=== PATIENT | female | born 1970 | race Caucasian/White ===

== ENCOUNTER 2019-12-07 14:57 | Outpatient (CLI) | payer OTHER, SELFPAY ==
--- NOTE | ~2019-12-07 | MM_ITS ---
EXAMINATION: MM screening [facility] HISTORY: Screening mammogram TECHNIQUE: Craniocaudal and mediolateral oblique 3-D tomosynthesis images were obtained and synthetic 2-D images were generated. CAD analysis was submitted and interpreted. COMPARISON: 12/04/2018 diagnostic left digital mammogram 11/15/2018, 10/30/2017, 10/26/2016 bilateral digital screening mammogram examinations BREAST PARENCHYMAL COMPOSITION: There are scattered areas of fibroglandular density. FINDINGS: Scattered bilateral occasional benign calcifications. There is no evidence of suspicious ma ss, calcification, or architectural distortion to suggest malignancy in either breast. There has been no suspicious interval change. IMPRESSION: 1. No mammographic evidence of malignancy. 2. Recommend routine screening mammography in one year. BI-RADS Category 2: Benign finding(s). Reviewed, dictated and finalized at location A. BITS CURATOR
== END 2019-12-07 14:58 | disposition home or self-care (01) ==
LOC: ANHIMG 15:02
PROVIDERS: PCP Physician Assistant; Visit Provider Obstetrics & Gynecology
DX: Z12.31 Encounter for screening mammogram for malignant neoplasm of breast (principal)
CPT/HCPCS: 77063; 77067

== ENCOUNTER 2020-12-13 13:43 | Outpatient (CLI) | payer OTHER, SELFPAY ==
--- NOTE | ~2020-12-13 | MM_ITS ---
EXAMINATION: MM screening [facility] [place] HISTORY: Screening TECHNIQUE: Craniocaudal and mediolateral oblique 3-D tomosynthesis images were obtained and synthetic 2-D images were generated. CAD analysis was submitted and interpreted. COMPARISON: Comparison to multiple prior studies sequentially, with oldest reviewed study dated 09/28. BREAST PARENCHYMAL COMPOSITION: Breast composed of scattered areas of fibroglandular density. FINDINGS: The right breast is stable without evidence for malignancy. There is a cluster of indetermi kenroy calcifications in the upper outer quadrant of the left breast which may be slightly increased in number compared with prior study. IMPRESSION: 1. Developing cluster of indeterminate calcifications upper outer quadrant, middle third. 2. Magnification views are recommended. BI-RADS Category 0: Incomplete: Needs additional imaging evaluation. Reviewed, dictated and finalized at location A. OPERATIONS SUPERVISOR IMPRESSION: 1. Developing cluster of indeterminate calcifications upper outer quadrant, mid dle third. 2. Magnification views are recommended. BI-RADS Category 0: Incomplete: Needs additional imaging evaluation.
== END 2020-12-13 13:44 | disposition home or self-care (01) ==
LOC: ANHIMG 13:45
PROVIDERS: PCP Physician Assistant; Visit Provider Obstetrics & Gynecology
DX: Z12.31 Encounter for screening mammogram for malignant neoplasm of breast (principal); R92.8 Other abnormal and inconclusive findings on diagnostic imaging of breast
CPT/HCPCS: 77063; 77067

== ENCOUNTER 2020-12-15 11:25 | Outpatient (CLI) | payer OTHER, SELFPAY ==
--- NOTE | ~2020-12-15 | MMUS_ITS ---
EXAMINATION: MM diagnostic mammo unilat LT, US breast LT limited HISTORY: Follow-up left breast asymmetries/calcifications TECHNIQUE: Additional 3-D tomosynthesis images of the left breast were performed and synthetic 2-D im ages were generated. CAD analysis was submitted and interpreted. High resolution Limited left breast ultrasound was performed. COMPARISON: Comparison to multiple prior studies sequentially, with oldest reviewed study dated 09/29. BREAST PARENCHYMAL COMPOSITION: Breast composed of scattered areas of fibroglandular density. FINDINGS: MAMMOGRAPHIC FINDINGS: There are benign-appearing calcifications in the upper outer quadrant of the left breast, a few of wh ich layer on the medial lateral view, suggesting benign milk of calcium. ULTRASOUND: Limited left breast ultrasound: At 3:00, 3 cm from the nipple, there is a small hypoechoic mass measu ring 3 mm with focus of increased echogenicity internally which may represent milk of calcium or roma gn intramammary lymph node. No other masses are identified. IMPRESSION: 1. Probable benign findings of the left breast. 2. Recommend 6 month follow-up diagnostic left mammogram and ultrasound. BI-RADS category 3, probably benign findings. Reviewed, dictated and finalized at location A. ENTER [employer]LE [employer]LLY IMPRESSION: 1. Probable benign findings of the left breast. 2. Recommend 6 month follow-up diagnostic left mammogram and ultrasound. BI-RADS category 3, probably benign findings.
== END 2020-12-15 11:26 | disposition home or self-care (01) ==
PROVIDERS: PCP Physician Assistant; Visit Provider Obstetrics & Gynecology
DX: R92.8 Other abnormal and inconclusive findings on diagnostic imaging of breast (principal)
CPT/HCPCS: 76642; 77065

== ENCOUNTER 2021-06-15 13:53 | Outpatient (CLI) | payer OTHER, SELFPAY ==
--- NOTE | ~2021-06-15 | MMUS_ITS ---
EXAMINATION: MM diagnostic [facility] LT w [place], US breast LT limited HISTORY: Six-month follow-up for probably benign left breast mass TECHNIQUE: Craniocaudal, mediolateral, and mediolateral oblique 3-D tomosynthesis images of the left breast were performed and synthetic 2-D images were generated. CAD analysis was submitted and interpr eted. High resolution limited left breast ultrasound was performed. COMPARISON: 12/15/2020, 12/13/2020, 12/07/2019, 12/04/2018 BREAST PARENCHYMAL COMPOSITION: There are scattered areas of fibroglandular density. FINDINGS: MAMMOGRAPHIC FINDINGS: There is no evidence of suspicious mass, calcification, or architectural distortion left malignancy. There has been no suspicious interval change. Stable benign calcifications are present in the upper o uter quadrant of the breast. ULTRASOUND: No persistent discrete mass is identified at the 3:00 location 3 cm from the nipple. IMPRESSION: 1. No mammographic or sonographic evidence of malignancy. 2. Recommend routine screening mammography. BI-RADS Category 2: Benign finding(s). Reviewed, dictated and finalized at location A. IMPRESSION: 1. No mammographic or sonographic evidence of malignancy. 2. Recommend routine screening mammography. BI-RADS Category 2: Benign finding(s).
== END 2021-06-15 13:54 | disposition home or self-care (01) ==
LOC: ANHIMG 13:54
PROVIDERS: PCP Physician Assistant; Visit Provider Obstetrics & Gynecology
DX: R91.8 Other nonspecific abnormal finding of lung field (principal)
CPT/HCPCS: 76642; 77061; 77065; G0279

== ENCOUNTER 2022-01-09 09:32 | Outpatient (CLI) | payer OTHER, SELFPAY ==
--- NOTE | ~2022-01-09 | MM_ITS ---
EXAMINATION: MM screening [facility] BI w [place] HISTORY: Screening mammogram TECHNIQUE: Craniocaudal and mediolateral oblique 3-D tomosynthesis images were obtained and synthetic 2-D images were generated. CAD analysis was submitted and interpreted. COMPARISON: 06/15/2021, 12/15/2020, 12/13/2020, 12/07/2019 BREAST PARENCHYMAL COMPOSITION: There are scattered areas of fibroglandular density. FINDINGS: There is no evidence of suspicious mass, calcification, or architectural distortion to sugg est malignancy in either breast. There has been no suspicious interval change. IMPRESSION: 1. No mammographic evidence of malignancy. 2. Recommend routine screening mammography in one year. BI-RADS Category 1: Negative Reviewed, dictated and finalized at location A.
== END 2022-01-09 09:33 | disposition home or self-care (01) ==
LOC: ANHIMG 09:33
PROVIDERS: PCP Physician Assistant; Visit Provider Obstetrics & Gynecology
DX: Z12.31 Encounter for screening mammogram for malignant neoplasm of breast (principal)
CPT/HCPCS: 77063; 77067

== ENCOUNTER 2023-01-18 15:01 | Outpatient (CLI) | payer OTHER, SELFPAY ==
--- NOTE | ~2023-01-18 | MM_ITS ---
EXAMINATION: MM screening [facility] [place] HISTORY: Screening TECHNIQUE: Craniocaudal and mediolateral oblique 3-D tomosynthesis images were obtained and synthetic 2-D images were generated. CAD analysis was submitted and interpreted. COMPARISON: Comparison to multiple prior studies sequentially, with oldest reviewed study dated 12/07. BREAST PARENCHYMAL COMPOSITION: There are scattered areas of fibroglandular density. FINDINGS: There is no evidence of suspicious mass, calcification, or architectural distortion to sugg est malignancy in either breast. There has been no suspicious interval change. IMPRESSION: 1. No mammographic evidence of malignancy. 2. Recommend routine screening mammography in one year. BI-RADS Category 1: Negative Reviewed, dictated and finalized at location A.
== END 2023-01-18 15:02 | disposition home or self-care (01) ==
PROVIDERS: PCP Physician Assistant; Visit Provider Obstetrics & Gynecology
DX: Z12.31 Encounter for screening mammogram for malignant neoplasm of breast (principal)
CPT/HCPCS: 77063; 77067

== ENCOUNTER 2024-01-24 08:25 | Outpatient (CLI) | payer OTHER, SELFPAY ==
--- NOTE | ~2024-01-24 | MM_ITS ---
EXAMINATION: MM screening [facility] [place] HISTORY: Screening mammogram TECHNIQUE: Craniocaudal and mediolateral oblique 3-D tomosynthesis images were obtained and synthetic 2-D images were generated. CAD analysis was submitted and interpreted. COMPARISON: 01/14/2023, 01/09/2022 bilateral screening mammogram examinations BREAST PARENCHYMAL COMPOSITION: There are scattered areas of fibroglandular density. FINDINGS: There is no evidence of suspicious mass, calcification, or architectural distortion to sugg est malignancy in either breast. There has been no suspicious interval change. IMPRESSION: 1. No mammographic evidence of malignancy. 2. Recommend routine screening mammography in one year. BI-RADS Category 1: Negative Reviewed, dictated and finalized at location A.
== END 2024-01-24 08:26 | disposition home or self-care (01) ==
LOC: ANHIMG 08:29
PROVIDERS: PCP Physician Assistant; Visit Provider Obstetrics & Gynecology
DX: Z12.31 Encounter for screening mammogram for malignant neoplasm of breast (principal)
CPT/HCPCS: 77063; 77067

== ENCOUNTER 2025-01-25 08:30 | Outpatient (CLI) | payer OTHER, SELFPAY ==
--- NOTE | ~2025-01-25 | MM_ITS ---
EXAMINATION: MM screening ambrocio BI w [place] HISTORY: Screening TECHNIQUE: Craniocaudal and mediolateral oblique 3-D tomosynthesis images were obtained and synthetic 2-D images were generated. CAD analysis was submitted and interpreted. COMPARISON: Comparison to multiple prior studies sequentially, with oldest reviewed study dated 12/13. BREAST PARENCHYMAL COMPOSITION: Not dense: There are scattered areas of fibroglandular density. FINDINGS: There is no evidence of suspicious mass, calcification, or architectural distortion to sugg est malignancy in either breast. There has been no suspicious interval change. IMPRESSION: 1. No mammographic evidence of malignancy. 2. Recommend routine screening mammography in one year. BI-RADS Category 1: Negative Reviewed, dictated and finalized at location A.
--- OUTSIDE RECORDS SUMMARY | 2025-01-25 08:53 | XMS_ITS | Encounter Summary ---
Author Organization [facility] Healthcare Address [address] [place] [address] Care Team Providers Care Shoe Sprayer Name Role Phone Yohana Hurtado Primary Care Provider [phone]- [phone] Encounter Details Date Type Department Care Team (Late st Contact Info) Description 01/24/2024 Orders Only [facility] Health Information Management [address] [place] [id number] Carlos Arrieta MD [facility] [address] [address] Social History Tobacco Use Types Packs/Day Years Used Date Smoking Tobacco: Never Smokeless Tobacco: Never Alcohol Use Standard Drinks/Week Comments Yes 0 (1 standard drink = 0.6 oz pur e alcohol) social AUDIT-C Answer Date Recorded Q1: How often do you have a drink containing alc ohol? Monthly or less 11/25/2023 Q2: How many drinks containi ng alcohol do you have on a typical day when you are drinking? 1 or 2 11/25/2023 Q3: How often do you have si x or more drinks on one occasion? 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 Gender Identity Female 01/24/2021 12:58 PM CDT Sexual Orientation Straight 01/24/2021 12 :58 PM CDT Occupation Industry Job Start Date Job End Date Teacher Not on file Not on file Not on file documented as of this encounter Plan of Treatment Not on file documented as of this encounter Procedures Procedure Name Priority Date/Time Associated Diagnosis Comments SCAN - RADIOLOGY/IMAGING 01/24/2024 documented in this encounter Results * SCAN - RADIOLOGY/IMAGING (01/24/2024) Anatomical Region Laterality Modality Other Carlos Arrieta MD Final R esult documented in this encounter Visit Diagnoses Not on filedocumented in this encounter Care Teams Shoe Sprayer Relationship Specialty Start Date End Date Yohana Hurtado PA [address] [place] [address] PCP - General Internal Medicine 08/10/19 documented as of this encounter
--- OUTSIDE RECORDS SUMMARY | 2025-01-25 08:53 | XMS_ITS | Referral Summary ---
Author Organization [address] [address] Care Team Providers Care Manager Reporting Name Role Phone Yohana Hurtado Primary Care Provider [phone] Encounters Date Type Department Care Team Description 12/25/2024 Results Follow-Up [address] [address] Yohana Hurtado PA Acquired hypothyroidism (Primary Dx) 12/01/2024 2:45 PM RESOLUTION MANAGER Clinical Support [address] [address] Dysuria (Primary Dx) 11/30/2024 3:30 PM RESOLUTION MANAGER Office Visit [address] [address] Yohana Hurtado PA Annual physical exam (Primary Dx); Lumbar back pain; Acquired hypothyroidism; Mixed hyperlipidemia; Diabetes mellitus screening; Fatigue, unspecified type; BMI 36.0-36.9,adult; Morbid obesity (HCC); Low vitamin D level; Essential hypertension; Ingrown toenail; Situational stress from Last 3 Months Allergies Active Allergy Reactions Criticality Noted Date Comments Codeine Vomiting Low Medications multivit-min/iron/ folic acid/K (ADULTS MULTIVITAMIN ORAL) Rx: Multivitamin Adult - Tablet Active ascorbic acid (VITAMIN C) 1,000 mg tablet 1 tablet (1,000 mg total) Active vitamin E 400 unit capsule 1 capsule (400 Units total) daily Active CALCIUM-MAGNESIUM- ZINC ORAL Take by mouth Active cholecalciferol (VITAMIN D-3) 5,000 unit tablet Take 1 tablet (5,000 Units total) by mouth daily Active mupirocin (BACTROBAN) 2 % ointment Apply to each nostril 2 (two) times a day 22 g 04/17/20 24 Active Additional Information Patient not taking.Reported on 05/06/2024 meloxicam (MOBIC) 7.5 mg tablet TAKE 1 TABLET DAILY 90 tablet 3 06/11/20 24 Active benzonatate (TESSALON) 200 mg capsuleIndications :Acute cough Take 1 capsule (200 mg total) by mouth 3 (three) times a day as needed for cough keep tessalon out of reach of children, especially children under the age of 10, due to possible serious risk such as if ingested by children under the age of 10. 30 capsule 07/06/20 24 Active Additional Information Patient not taking.Reported on 11/30/2024 albuterol HFA (PROVENTIL HFA,VENTOLIN HFA,PROAIR HFA) 90 mcg/actuation inhalerIndications :History of wheezing Inhale 2 puffs every 6 (six) hours as needed for wheezing 1 each 07/06/20 24 025 Active lisinopriL (PRINIVIL,ZESTRIL) 10 mg tabletIndications: Essential hypertension TAKE 1 TABLET DAILY 100 tablet 11/25/19 25 Active escitalopram (LEXAPRO) 10 mg tablet Take 1 tablet (10 mg total) by mouth daily 90 tablet 1 11/30/19 25 Active levothyroxine (SYNTHROID) 150 mcg tabletIndications: Acquired hypothyroidism Take 1 tablet (150 mcg total) by mouth manager sap before breakfast 30 tablet 12/25/19 25 Active Active Problems Problem Noted Date Diagnosed Date Lumbar back pain 12/12/2024 Assessment & Plan (12/12/2024 11:49 PM RESOLUTION MANAGER): Back pain has been persistent. Will provide physical therapy order. Continue anti-inflammatories as needed. If symptoms worsen or do not resolve or she would notice loss of control of her bowels or bladder she is to follow up immediately Ingrown toenail 12/12/2024 Assessment & Plan (12/12/2024 11:47 PM RESOLUTION MANAGER): This is a significant, separately identifiable problem that was evaluated and managed on the same day as the wellness exam Toenail of the great toe is cut to the point where the middle aspect is a little red puffy and tender. Will start Keflex t.i.d. times 10 days. Reviewed proper cutting of the nails. Situational stress 12/12/2024 Assessment & Plan (12/12/2024 11:50 PM RESOLUTION MANAGER): This is a significant, separately identifiable problem that was evaluated and managed on the same day as the wellness exam Situational stressors that seem to be increased with school as well as family. Recommend starting Lexapro. Reviewed risks benefits alternatives side effects and proper use. Follow up in 6-8 weeks to reassess or sooner for any other problems or concerns Pain of both hip joints 11/25/2023 Assessment & Plan (11/25/2023 9:21 PM RESOLUTION MANAGER): Patient complains of bilateral hip pain. No known injury. Will check x-rays to rule out bony abnormality. Andrea sent to pharmacy taking 1 daily to see if this helps with her discomfort Low vitamin D level 11/25/2023 Assessment & Plan (12/12/2024 11:47 PM RESOLUTION MANAGER): Supplement Assessment & Plan (11/25/2023 9:22 PM RESOLUTION MANAGER): Supplement Diabetes mellitus screening 11/25/2022 Assessment & Plan (12/12/2024 11:48 PM RESOLUTION MANAGER): Check labs Assessment & Plan (11/25/2023 9:21 PM RESOLUTION MANAGER): Check labs Assessment & Plan (11/25/2022 6:42 PM RESOLUTION MANAGER): Check labs Fatigue 12/01/2021 Assessment & Plan (12/12/2024 11:48 PM RESOLUTION MANAGER): Probably multifactorial. Check labs and followup to re-evaluate Assessment & Plan (11/25/2023 9:20 PM RESOLUTION MANAGER): Probably multifactorial. Check labs and followup to re-evaluate Assessment & Plan (11/25/2022 6:41 PM RESOLUTION MANAGER): Probably multifactorial. Check labs and followup to re-evaluate Assessment & Plan (12/01/2021 12:05 PM RESOLUTION MANAGER): Probably multifactorial. Check labs and followup to re-evaluate Mixed hyperlipidemia 12/01/2021 Assessment & Plan (12/12/2024 11:48 PM RESOLUTION MANAGER): Encouraged patient to follow low fat/low chol diet like the Mediterranean diet. Increase good fats in the diet. Increase exercise. Monitor labs as needed. Assessment & Plan (11/25/2023 9:21 PM RESOLUTION MANAGER): Encouraged patient to follow low fat/low chol diet like the Mediterranean diet. Increase good fats in the diet. Increase exercise. Monitor labs as needed. Assessment & Plan (11/25/2022 6:42 PM RESOLUTION MANAGER): Encouraged patient to follow low fat/low chol diet like the Mediterranean diet. Increase good fats in the diet. Increase exercise. Monitor labs as needed. Assessment & Plan (12/01/2021 12:05 PM RESOLUTION MANAGER): Encouraged patient to follow fat/low chol diet like the Mediterranean diet. Increase good fats in the diet. Increase exercise. Monitor labs as needed. Morbid obesity 11/13/2021 Assessment & Plan (12/12/2024 11:47 PM RESOLUTION MANAGER): Discussed the patient's BMI. The BMI is above average. BMI management plan is completed. BMI Follow-up includes: nutrition counseling, exercise counseling and education provided. Patient has an obesity-related condition (not limited to: hypertension, obstructive sleep apnea, osteoarthritis, hyperlipidemia, diabetes, etc.). Therefore, morbid obesity may be documented for patients with a BMI between 35.00-39.99. Assessment & Plan (05/17/2024 8:50 PM CDT): Discussed the patient's BMI. The BMI is above average. BMI management plan is completed. BMI Follow-up includes: nutrition counseling, exercise counseling and education provided. Patient has an obesity-related condition (not limited to: hypertension, obstructive sleep apnea, osteoarthritis, hyperlipidemia, diabetes, etc.). Therefore, morbid obesity may be documented for patients with a BMI between 35.00-39.99. Assessment & Plan (04/17/2024 8:27 AM CDT): Discussed the patient's BMI. The BMI is above average. BMI management plan is completed. BMI Follow-up includes: nutrition counseling, exercise counseling and education provided. Patient has an obesity-related condition (not limited to: hypertension, obstructive sleep apnea, osteoarthritis, hyperlipidemia, diabetes, etc.). Therefore, morbid obesity may be documented for patients with a BMI between 35.00-39.99. Assessment & Plan (11/25/2023 9:19 PM RESOLUTION MANAGER): Discussed the patient's BMI. The BMI is above average. BMI management plan is completed. BMI Follow-up includes: nutrition counseling, exercise counseling and education provided. Assessment & Plan (11/25/2022 6:40 PM RESOLUTION MANAGER): Discussed the patient's BMI. The BMI is above average. BMI management plan is completed. BMI Follow-up includes: nutrition counseling, exercise counseling and education provided. Assessment & Plan (11/13/2021 8:11 AM RESOLUTION MANAGER): Obesity is unchanged. Discussed the patient's BMI. The BMI is above average. BMI management plan is completed. BMI Follow-up includes: nutrition counseling, exercise counseling and education provided. BMI 36.0-36.9,adult 11/13/2021 Assessment & Plan (11/30/2024 3:25 PM RESOLUTION MANAGER): Discussed the patient's BMI. The BMI is above average. BMI management plan is completed. BMI Follow-up includes: nutrition counseling, exercise counseling and education provided. Assessment & Plan (11/13/2021 8:11 AM RESOLUTION MANAGER): Obesity is unchanged. Discussed the patient's BMI. The BMI is above average. BMI management plan is completed. BMI Follow-up includes: nutrition counseling, exercise counseling and education provided. Annual physical exam 11/13/2021 Assessment & Plan (12/12/2024 11:48 PM RESOLUTION MANAGER): Encouraged healthy lifestyle, good nutrition and exercise. Encouraged Calcium and Vitamin D and weight bearing exercise for bone health. Reviewed immunizations Reviewed age appropirate screenings. Assessment & Plan (11/25/2023 9:20 PM RESOLUTION MANAGER): Encouraged healthy lifestyle, good nutrition and exercise. Encouraged Calcium and Vitamin D and weight bearing exercise for bone health. Reviewed immunizations Reviewed age appropirate screenings. Assessment & Plan (11/25/2022 6:41 PM RESOLUTION MANAGER): Encouraged healthy lifestyle, good nutrition and exercise. Encouraged Calcium and Vitamin D and weight bearing exercise for bone health. Reviewed immunizations Reviewed age appropirate screenings. Assessment & Plan (12/01/2021 12:05 PM RESOLUTION MANAGER): Encouraged healthy lifestyle, good nutrition and exercise. Encouraged Calcium and Vitamin D and weight bearing exercise for bone health. Reviewed immunizations Reviewed age appropirate screenings. Plantar fasciitis of right foot 11/13/2021 Essential hypertension 02/14/2021 Assessment & Plan (12/12/2024 11:47 PM RESOLUTION MANAGER): Bp is stable/in acceptable range for any co-morbidities. Encouraged to limit sodium intake and exercise for weight control. Continue lisinopril 10 Assessment & Plan (04/17/2024 8:27 AM CDT): Bp is stable/in acceptable range for any co-morbidities. Encouraged to limit sodium intake and exercise for weight control. Assessment & Plan (11/25/2023 9:20 PM RESOLUTION MANAGER): Bp is stable/in acceptable range for any co-morbidities. Encouraged to limit sodium intake and exercise for weight control. Continue lisinopril 10 Assessment & Plan (11/25/2022 6:41 PM RESOLUTION MANAGER): Bp is stable/in acceptable range for any co-morbidities. Encouraged to limit sodium intake and exercise for weight control Continue lisinopril 10 Assessment & Plan (12/01/2021 12:05 PM RESOLUTION MANAGER): Bp is stable/in acceptable range for any co-morbidities. Encouraged to limit sodium intake and exercise for weight control. Continue lisinopril 10 Assessment & Plan (03/05/2021 4:41 PM CDT): Bp is stable/in acceptable range for any co-morbidities. Encouraged to limit sodium intake and exercise for weight control. Start lisinopril 10mg one daily. Reviewed risks, benefit, alternatives, side effects and proper use. Rosacea 10/31/2020 Assessment & Plan (10/31/2020 9:24 AM RESOLUTION MANAGER): This is a significant, separately identifiable problem that was evaluated and managed on the same day as the wellness exam Start Metrogel for her Rosacea. Reviewed risks, benefit, alternatives, side effects and proper use. Acquired hypothyroidism 10/31/2020 Assessment & Plan (12/12/2024 11:48 PM RESOLUTION MANAGER): Continue levothyroxine 175 mcg. Monitor labs. Assessment & Plan (11/25/2023 9:20 PM RESOLUTION MANAGER): Continue levothyroxine. Monitor labs. Assessment & Plan (11/25/2022 6:40 PM RESOLUTION MANAGER): Continue levothyroxine. Monitor labs. Assessment & Plan (12/01/2021 12:05 PM RESOLUTION MANAGER): Continue levothyroxine. Monitor labs. Assessment & Plan (10/31/2020 9:25 AM RESOLUTION MANAGER): Check labs--- De Quervain's disease (radial styloid tenosynovi tis) 10/31/2020 Assessment & Plan (10/31/2020 9:22 AM RESOLUTION MANAGER): This is a significant, separately identifiable problem that was evaluated and managed on the same day as the wellness exam Will refer to Ortho hand for further evaluation. Breast cancer screening by mammogram 10/31/2020 Assessment & Plan (10/31/2020 9:25 AM RESOLUTION MANAGER): Mammogram order provided Singletary's cyst of knee, right 08/31/2019 Assessment & Plan (08/31/2019 4:04 PM RESOLUTION MANAGER): Encouraged NSAIDs, ice, elevation and compression. Reviewed natural course and that it may resolve spontaneously. If sxs persist, it continues to grow or has increased pain will consider xrays (which were offered today, but prefers to avoid if able) and referral to ortho for evaluation/possible drainage. FH: factor V Leiden mutation 02/19/2018 Irregular menses 02/19/2018 Metrorrhagia 02/13/2018 Resolved Problems Problem Noted Date Diagnosed Date Resolved Date Nasal sore 04/17/2024 12/12/2024 Assessment & Plan (05/17/2024 8:49 PM CDT): Nasal sore has completely resolved. If it would return she can start the Bactroban again but if it is persistent will need to see ENT. She is in agreement with the plan Assessment & Plan (04/17/2024 8:26 AM CDT): Patient has had a nasal sore for the last couple of weeks. Use triple antibiotic without resolution. Will start Bactroban inside the nose as well as at the septum on the outside. Do that for the next 2 weeks twice a day. If symptoms persist will get her in with ENT for further evaluation. If she would start noting fever chills sweats or increase to redness visible in the outside she is to follow up immediately. BMI 35.0-35.9,adult 11/19/2022 12/12/19 Assessment & Plan (05/17/2024 8:50 PM CDT): Discussed the patient's BMI. The BMI is above average. BMI management plan is completed. BMI Follow-up includes: nutrition counseling, exercise counseling and education provided. Assessment & Plan (04/17/2024 7:12 AM CDT): Discussed the patient's BMI. The BMI is above average. BMI management plan is completed. BMI Follow-up includes: nutrition counseling, exercise counseling and education provided. Assessment & Plan (11/25/2023 9:19 PM RESOLUTION MANAGER): Discussed the patient's BMI. The BMI is above average. BMI management plan is completed. BMI Follow-up includes: nutrition counseling, exercise counseling and education provided. Patient has an obesity-related condition (not limited to: hypertension, obstructive sleep apnea, osteoarthritis, hyperlipidemia, diabetes, etc.). Therefore, morbid obesity may be documented for patients with a BMI between 35.00-39.99. Assessment & Plan (11/19/2022 3:34 PM RESOLUTION MANAGER): Discussed the patient's BMI. The BMI is above average. BMI management plan is completed. BMI Follow-up includes: nutrition counseling, exercise counseling and education provided. Obesity (BMI 30-39.9) 02/14/20212021 Assessment & Plan (02/14/2021 2:25 PM CDT): Obesity is unchanged. Discussed the patient's BMI. The BMI is above average. BMI management plan is completed. BMI Follow-up includes: nutrition counseling, exercise counseling and education provided. BMI 35.0-35.9,adult 02/14/2021 11/13/19 Assessment & Plan (02/14/2021 2:25 PM CDT): Obesity is unchanged. Discussed the patient's BMI. The BMI is above average. BMI management plan is completed. BMI Follow-up includes: nutrition counseling, exercise counseling and education provided. BMI 34.0-34.9,adult 10/31/2020 02/15/20 21 Assessment & Plan (10/31/2020 8:12 AM RESOLUTION MANAGER): Obesity is unchanged. Discussed the patient's BMI. The BMI is above average. BMI management plan is completed. BMI Follow-up includes: nutrition counseling, exercise counseling and education provided. Annual physical exam 10/31/2020 021 Assessment & Plan (10/31/2020 9:25 AM RESOLUTION MANAGER): Encouraged healthy lifestyle, good nutrition and exercise. Encouraged Calcium and Vitamin D and weight bearing exercise for bone health. Reviewed immunizations Reviewed age appropirate screenings. Diabetes mellitus screening 10/31/2020 11/13/2021 Assessment & Plan (10/31/2020 9:26 AM RESOLUTION MANAGER): Check labs Lipid screening 10/31/2020 11/13/2021 Assessment & Plan (10/31/2020 9:26 AM RESOLUTION MANAGER): Check labs Other fatigue 10/31/2020 11/13/2021 Assessment & Plan (10/31/2020 9:26 AM RESOLUTION MANAGER): Probably multifactorial. Check labs and followup to re-evaluate Acute cough 10/09/2020 12/12/2024 Assessment & Plan (03/10/2022 8:43 PM CDT): Continue/complete Cefdinir and Medrol dose pac Try promethazine since she is unable to tolerate codeine Check CXR. Push fluids. Rest. Supportive care. If sxs worsen or don\'t improve, pt is to followup in the office. Assessment & Plan (10/09/2020 7:35 PM RESOLUTION MANAGER): Will try a Medrol dose pack to see if sxs resolve. If persist, may need cxr/additional workup. BMI 34.0-34.9,adult 08/31/2019 10/31/19 21 Assessment & Plan (08/31/2019 3:41 PM RESOLUTION MANAGER): Obesity is unchanged. Discussed the patient's BMI. The BMI is above average. BMI management plan is completed. BMI Follow-up includes: nutrition counseling, exercise counseling and education provided. Obesity (BMI 30-39.9) 08/31/20192020 Assessment & Plan (10/31/2020 9:22 AM RESOLUTION MANAGER): Obesity is unchanged. Discussed the patient's BMI. The BMI is above average. BMI management plan is completed. BMI Follow-up includes: nutrition counseling, exercise counseling and education provided. Assessment & Plan (08/31/2019 3:41 PM RESOLUTION MANAGER): Obesity is unchanged. Discussed the patient's BMI. The BMI is above average. BMI management plan is completed. BMI Follow-up includes: nutrition counseling, exercise counseling and education provided. Other obesity due to excess calories 08/30/2017 11/25/2022 Body mass index (BMI) of 34.0-34.9 in adult 08/30/2017 11/19/2022 Immunizations Immunization Administration Dates Next Due Influenza, Quadrivalent, Shirley l Culture-based MDCK, Preservative Free, Antibiotic Free, Intramuscular 08/21/2023,08/22/2022 Influenza, Quadrivalent, Spl it, Preservative Free, Intramuscular 09/06/2021,08/11/2020,08/10/2019,08/27,08/26/2018 Influenza, Split 09/02/2013 Influenza, Trivalent, IM (MDV) 08/19/2017 Influenza, Trivalent, Preser vative Free, Intramuscular 08/27/2024,08/15/2016 Influenza, Unspecified 08/21/2023,08/22/2022, Moderna SARS-CoV-2 Monovalen t Vaccination (12+ YRS) 12/17/2020 Tdap 03/20/2018 ZOSTER Recombinant 01/30/2021,11/01/2020 Social History Tobacco Use Types Packs/Day Years Used Date Smoking Tobacco: Never Smokeless Tobacco: Never Tobacco Cessation:Counseling Given: Not Answered Alcohol Use Standard Drinks/Week Comments Yes 0 (1 standard drink = 0.6 oz pur e alcohol) social AUDIT-C Answer Date Recorded Q1: How often do you have a drink containing alc ohol? Monthly or less 11/30/2024 Q2: How many drinks containi ng alcohol do you have on a typical day when you are drinking? 1 or 2 11/30/2024 Q3: How often do you have si x or more drinks on one occasion? Never 11/30/2024 PHQ-2 Answer Date Recorded PHQ-2 Total Score (If total score is 3 or more points, staff should administer the PHQ-9) 0 11/30/2024 Comments No Sex and Gender Information Value Date Recorded Sex Assigned at Not on file Legal Sex Female 2:29 AM RESOLUTION MANAGER Gender Identity Female 01/24/2021 12:58 PM CDT Sexual Orientation Straight 01/24/2021 12 :58 PM CDT Occupation Industry Job Start Date Job End Date Teacher Not on file Not on file Not on file Last Filed Vital Signs Vital Sign Reading Time Taken Comments Blood Pressure 126/74 11/30/2024 3:22 PM RESOLUTION MANAGER Pulse 79 11/30/2024 3:22 PM RESOLUTION MANAGER Temperature 36.9 C (98.4 F) 11/30/2024 3:22 PM RESOLUTION MANAGER Respiratory Rate 22 07/06/2024 2:26 PM CDT Oxygen Saturation 97% 11/30/2024 3:22 PM RESOLUTION MANAGER Inhaled Oxygen Concentration - - Weight 105.2 kg (231 lb 14.4 oz) 11/30/2024 3:22 PM RESOLUTION MANAGER Height 168.9 cm (5' 6.5 ) 11/30/2024 3:22 PM RESOLUTION MANAGER Body Mass Index 36.87 11/30/2024 3:22 PM RESOLUTION MANAGER Plan of Treatment Not on file Procedures Procedure Name Priority Date/Time Associated Diagnosis Comments TSH Routine 12/19/2024 9:31 AM RESOLUTION MANAGER Acquired hypothyroidism HEMOGLOBIN A1C Routine 12/19/2024 9:31 AM RESOLUTION MANAGER Diabetes mellitus screening LIPID PANEL Routine 12/19/2024 9:31 AM RESOLUTION MANAGER Mixed hyperlipidemia COMPREHENSIVE METABOLIC PANEL Routine 12/19/2024 9:31 AM RESOLUTION MANAGER Mixed hyperlipidemia CBC WITH AUTO DIFFERENTIAL Routine 12/19/2024 9:31 AM RESOLUTION MANAGER Fatigue, unspecified type POCT URINALYSIS DIPSTICK Routine 12/01/2024 2:42 PM RESOLUTION MANAGER Dysuria URINE CULTURE Routine 12/01/2024 2:33 PM RESOLUTION MANAGER Dysuria HM MAMMOGRAPHY Routine 01/24/2024 11:45 AM CDT HIGH RISK HPV DNA DETECTION WITH GENOTYPING Routine 11/11/2023 11:52 AM RESOLUTION MANAGER Abnormal uterine bleeding (AUB) HM COLONOSCOPY Routine 05/11/2021 from Last 3 Months or Most Recently Relevant to Health Maintenance Results * (ABNORMAL) CBC with auto differential (12/19/2024 9:31 AM RESOLUTION MANAGER) WBC 3.3(L) 3.8 - 10.8 Thousand/u L [facility] RBC, POC 4.39 3.80 - 5.10 Million/uL [facility] Hgb 14.3 11.7 - 15.5 g/dL [facility] Hct 42.4 35.0 - 45.0 % [facility] MCV 96.6 80.0 - 100.0 fL [facility] MCH 32.6 27.0 - 33.0 pg [facility] MCHC 33.7 32.0 - 36.0 g/dL [facility] Comment: For adults, a slight decrease in the calculated MCHC value (in the range of 30 to 32 g/dL) is most likely not clinically significant; however, it should be interpreted with caution in correlation with other red cell parameters and the patient's clinical condition. Rdw 11.4 11.0 - 15.0 % [facility] Platelets 231 140 - 400 Thousand/u L [facility] MPV 11.7 7.5 - 12.5 fL [facility] Neutrophils, abs 1,815 1,500 - 7,800 cells/uL [facility] Lymphocytes, abs 950 850 - 3,900 cells/uL [facility] Monocyte abs 323 200 - 950 cells/uL [facility] Eosinophils, abs 182 15 - 500 cells/uL [facility] Basophils, abs 30 0 - 200 cells/uL [facility] Neutrophils 55 % [facility] Lymphocyte pct 28.8 % [facility] Monocytes 9.8 % [facility] Eosinophils 5.5 % [facility] Basophils 0.9 % [facility] Blood 12/19/2024 9:31 AM RESOLUTION MANAGER 12/19/2024 9:32 AM RESOLUTION MANAGER Narrative [facility] - 12/20/2024 9:42 AM RESOLUTION MANAGER FASTING:YES FASTING: YES Yohana HOLBROOK LAB BLOOD ORDERABLES Final Result Performing Organization Address [facility] Co de Phone Number [facility] [address] [place] [address] * (ABNORMAL) TSH (12/19/2024 9:31 AM RESOLUTION MANAGER) Pathologist [facility] TSH 0.12(L) mIU/L [facility] Comment: Reference Range > or = 20 Years 0.40-4.50 Ranges First trimester 0.26-2.66 Second trimester 0.55-2.73 Third trimester 0.43-2.91 Blood 12/19/2024 9:31 AM RESOLUTION MANAGER 12/19/2024 9:32 AM RESOLUTION MANAGER Narrative [facility] - 12/20/2024 9:42 AM RESOLUTION MANAGER FASTING:YES FASTING: YES Yohana HOLBROOK LAB BLOOD ORDERABLES Final Result Performing Organization Address [facility] de Phone Number [facility] [address] [place] [address] * Hemoglobin A1c (12/19/2024 9:31 AM RESOLUTION MANAGER) Pathologist [facility] Hgb A1C 5.3 <5.7 % of total Hgb [facility] Comment: For the purpose of screening for the presence of diabetes: <5.7% Consistent with the absence of diabetes 5.7-6.4% Consistent with increased risk for diabetes (prediabetes) > or =6.5% Consistent with diabetes This assay result is consistent with a decreased risk of diabetes. Currently, no consensus exists regarding use of hemoglobin A1c for diagnosis of diabetes in children. According to [place] [employer] (ADA) guidelines, hemoglobin A1c <7.0% represents optimal control in non- diabetic patients. Different metrics may apply to specific patient populations. Standards of Medical Care in Diabetes(ADA). Blood 12/19/2024 9:31 AM RESOLUTION MANAGER 12/19/2024 9:32 AM RESOLUTION MANAGER Narrative [facility] - 12/20/2024 9:42 AM RESOLUTION MANAGER FASTING:YES FASTING: YES us Yohana HOLBROOK LAB BLOOD ORDERABLES Final Result [facility] [address] [place] [address] * (ABNORMAL) Lipid panel (12/19/2024 9:31 AM RESOLUTION MANAGER) Pathologist [facility] Cholesterol 190 <200 mg/dL [facility] HDL 43(L) > OR = 50 mg/dL [facility] Triglycerides 144 <150 mg/dL [facility] LDL 121(H) mg/dL (calc) [facility] Comment: Reference range: <100 Desirable range <100 mg/dL for primary prevention; <70 mg/dL for patients with CHD or diabetic patients with > or = 2 CHD risk factors. LDL-C is now calculated using the Elvis-Nghia calculation, which is a validated novel method providing better accuracy than the Friedewald equation in the estimation of LDL-C. Elvis OROZCO et al. YOSHI. 2013;310(19): 3547-9037 (http://education.Owlr.VM6 Software/faq/BSZ595) Chol/HDL ratio 4.4 <5.0 (calc) [facility] Non-HDL, (LDL+VLDL) 147(H) <130 mg/dL (calc) [facility] Comment: For patients with diabetes plus 1 major ASCVD risk factor, treating to a non-HDL-C goal of <100 mg/dL (LDL-C of <70 mg/dL) is considered a therapeutic option. Blood 12/19/2024 9:31 AM RESOLUTION MANAGER 12/19/2024 9:32 AM RESOLUTION MANAGER Narrative [facility] - 12/20/2024 9:42 AM RESOLUTION MANAGER FASTING:YES FASTING: YES Yohana HOLBROOK LAB BLOOD ORDERABLES Final Result [facility] [address] [place] [address] * (ABNORMAL) Comprehensive metabolic panel (12/19/2024 9:31 AM RESOLUTION MANAGER) Pathologist [facility] Glucose 97 65 - 99 mg/dL [facility] Comment: Fasting reference interval BUN 19 7 - 25 mg/dL [facility] Creatinine 0.77 0.50 - 1.03 mg/dL [facility] eGFR 92 > OR = 60 mL/min/1.7 3m2 [facility] BUN/creat ratio SEE NOTE: 6 - 22 (calc) [facility] Comment: Not Reported: BUN and Creatinine are within reference range. Sodium 142 135 - 146 mmol/L [facility] Potassium, pl 4.7 3.5 - 5.3 mmol/L [facility] Chloride 107 98 - 110 mmol/L [facility] CO2 30 20 - 32 mmol/L [facility] Calcium 9.5 8.6 - 10.4 mg/dL [facility] Protein, sr 6.8 6.1 - 8.1 g/dL [facility] Albumin 4.4 3.6 - 5.1 g/dL [facility] GLOBULIN 2.4 1.9 - 3.7 g/dL (calc) [facility] Alb/glob ratio 1.8 1.0 - 2.5 (calc) [facility] Bilirubin, total 0.7 0.2 - 1.2 mg/dL [facility] Alk phos 65 37 - 153 U/L [facility] AST 27 10 - 35 U/L [facility] ALT (SGPT) 40(H) 6 - 29 U/L [facility] Blood 12/19/2024 9:31 AM RESOLUTION MANAGER 12/19/2024 9:32 AM RESOLUTION MANAGER Narrative [facility] - 12/20/2024 9:42 AM RESOLUTION MANAGER FASTING:YES FASTING: YES Yohana HOLBROOK LAB BLOOD ORDERABLES Final Result [facility] [address] [place] [address] * (ABNORMAL) POCT urinalysis dipstick (12/01/2024 2:42 PM RESOLUTION MANAGER) Pathologist [facility] Glucose, ur, POC Negative Negative MG/DL Bilirubin, ur, POC Negative Negative, Small, Moderate, Large Ketones, ur, POC Negative Negative Specific Adrian, POC 1.030 1.003 - 1.030 Blood, ur, POC Trace(A) Negative pH, ur, POC 6.0 5.0 - 8.0 Protein, ur, POC Negative Negative Urobilinogen, urine, POC 1.0 0.2 - 1.0 mg/dL Nitrite, ur, POC Negative Negative Leukocytes, ur, POC Negative Negative Lot Number [id number] Urine 12/01/2024 2:42 PM RESOLUTION MANAGER Yohana HOLBROOK POINT OF CARE TEST ORDERAB LES Final Result * Urine culture Urine, clean voided (12/01/2024 2:33 PM RESOLUTION MANAGER) Pathologist [facility] Urine culture [facility] Comment: CULTURE, URINE, ROUTINE Micro Number: [id number] Test Status: Final Specimen Source: Urine Specimen Quality: Adequate Result: No Growth Urine, clean voided 12/01/2024 2:33 PM RESOLUTION MANAGER 12/02/2024 1:58 AM RESOLUTION MANAGER Yohana HOLBROOK LAB MICROBIOLOGY - GENERAL ORDERABLES Final Result [facility] [address] [place] [address] * HM MAMMOGRAPHY (01/24/2024 11:45 AM CDT) Historical Provider HEALTH MAINTENANCE Final Result * High Risk HPV DNA Detection with Genotyping (Molecular component) (11/11/2023 11:52 AM RESOLUTION MANAGER) HPV HR 16 Not Detected Not Detected CHANA COSTA Comment:Testing performed by : [facility], [address] [place]., [address] HPV HR 18 Not Detected Not Detected CHANA COSTA Comment:Testing performed by : [facility], [address] [place]., [address] HPV HR Non 16/18 Not Detected Not Detected CHANA Comment: Interpretive Data Nucleic acid amplification for detection of high-risk Human Papilloma virus (HPV) is performed by the Kym Roderick 6800 HPV test. This assay specifically detects HPV-16 and HPV-18 genotypes. The following HPV genotypes are detected as high-risk HPV: HPV-31, 33, 35, ,39, 45, 51, 52, 56, 58, 59, 66, and 68. This assay has been approved by the [place] Food and Drug Administration for detection of HPV in cervical specimens collected by a physician using an endocervical brush/spatula or cervical broom and placed in the ThinPrep Pap Test PreservCyt collection containers. The performance characteristics of this test have been verified by the [facility] Molecular Infectious Disease laboratory. Correlate with separately reported cytology results, as applicable. Interpretive data last revised 23 Testing performed by: [facility], [address] [place]., [address] Endocervical 11/11/2023 11:5 2 AM RESOLUTION MANAGER 11/11/2023 6:39 PM RESOLUTION MANAGER Narrative CHANA - 11/12/2023 7:24 AM RESOLUTION MANAGER Clinical history and diagnosis->AUB Testing type->Screening Last menstrual period (date if known)->08/28/23 Carlos Arrieta MD LAB BODY FLUIDS AND STO OLS ORDERABLES Final Result [facility] [address] [facility] Department [place] [address] * HM COLONOSCOPY (05/11/2021) us Historical Provider HEALTH MAINTENANCE Edited Result - Final from Last 3 Months or Most Recently Relevant to Health Maintenance Insurance [facility] PLUS [facility] PLUS [place] [id number] [facility] CHO[facility] PLUS Care Teams Manager Reporting Relationship Specialty Start Date End Date Yohana Hurtado PA [address] [facility] [address] [place] [address] PCP - General Internal Medicine 08/10/19
--- OUTSIDE RECORDS SUMMARY | 2025-01-25 08:53 | XMS_ITS | Continuity of Care Document ---
Author Organization [facility] Address [address] [place] [address] [address] [place] [address] Phone Care Team Providers Care Orchard Pruner Name Role Phone Johnny Bess Unavailable Unavailable Procedures Procedure Date Office Consultation Advance Directives Directive Yes / No Effective Date File Name No Information Encounters Encounter Description Practice Location Reason(s) For Visit Diagnoses Date Provider Providers Copied on Encounter Office Consultation [facility], [id number] [place] [address] [address], [place], [place], [id number], [place] tel:[phone] [facility] No Information [phone] Doisy Edward. [address] , [address], [place], [address], [place]. tel:[phone] Referring Provider: Abiel Dickens MD F, [address] [place], [address]. tel:[phone] Family History Family Member Type Diagnosis Age At Onset No Information Payers Payer name Insurance type Covered libertarian ID Authoriza tion(s) No Information Social History Type Description Quantity Date Captured Comments Sex Female Smoking Status No Information Chief Complaint And Reason For Visit No Information Reason For Referral Reason For Referral No Information History Of Present Illness Encounter Date Complaint History Of Prese nt Illness No Information Functional Status Date Functional Assessmen t No Information Instructions Date Instruction Additional Infor mation No Information Assessments Type Assessment Date No Information Patient Care Teams Name Effective Dates (start - stop) Status Members No Information
--- OUTSIDE RECORDS SUMMARY | 2025-01-25 08:53 | XMS_ITS | Clinical Summary ---
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 Will provide physical therapy order. Continue anti-inflammatories as needed. If symptoms worsen or do not resolve or she would notice loss of control of her bowels or bladder she is to follow up immediately Ingrown toenail 12/12/2024 Assessment & Plan (12/12/2024 11:47 PM DATA VIRTUALIZATION CONSULTANT): This is a significant, separately identifiable problem that was evaluated and managed on the same day as the wellness exam Toenail of the great toe is cut to the point where the middle aspect is a little red puffy and tender. Will start Keflex t.i.d. times 10 days. Reviewed proper cutting of the nails. Situational stress 12/12/2024 Assessment & Plan (12/12/2024 11:50 PM DATA VIRTUALIZATION CONSULTANT): This is a significant, separately identifiable problem [...] 11/25/2023 Assessment & Plan (11/25/2023 9:21 PM DATA VIRTUALIZATION CONSULTANT): Patient complains of bilateral hip pain. No known injury. Will check x-rays to rule out bony abnormality. Andrea sent to pharmacy taking 1 daily to see if this helps with her discomfort Low vitamin D level 11/25/2023 Assessment & Plan (12/12/2024 11:47 PM DATA VIRTUALIZATION CONSULTANT): Supplement Assessment & Plan (11/25/2023 9:22 PM DATA VIRTUALIZATION CONSULTANT): Supplement Diabetes mellitus screening 11/25/2022 Assessment & Plan (12/12/2024 11:48 PM DATA VIRTUALIZATION CONSULTANT): Check labs Assessment & Plan (11/25/2023 9:21 PM DATA VIRTUALIZATION CONSULTANT): Check labs Assessment & Plan (11/25/2022 6:42 PM DATA VIRTUALIZATION CONSULTANT): Check labs Fatigue 12/01/2021 Assessment & Plan (12/12/2024 11:48 PM DATA VIRTUALIZATION CONSULTANT): Probably multifactorial. Check labs and followup to re-evaluate Assessment & Plan (11/25/2023 9:20 PM DATA VIRTUALIZATION CONSULTANT): Probably multifactorial. Check labs and followup to re-evaluate Assessment & Plan (11/25/2022 6:41 PM DATA VIRTUALIZATION CONSULTANT): Probably multifactorial. Check labs and followup to re-evaluate Assessment & Plan (12/01/2021 12:05 PM DATA VIRTUALIZATION CONSULTANT): Probably multifactorial. Check labs and followup to re-evaluate Mixed hyperlipidemia 12/01/2021 Assessment & Plan (12/12/2024 11:48 PM DATA VIRTUALIZATION CONSULTANT): Encouraged patient to follow low fat/low chol diet like the Mediterranean diet. Increase good fats in the diet. Increase exercise. Monitor labs as needed. Assessment & Plan (11/25/2023 9:21 PM DATA VIRTUALIZATION CONSULTANT): Encouraged patient to follow low fat/low chol diet like the Mediterranean diet. Increase good fats in the diet. Increase exercise. Monitor labs as needed. Assessment & Plan (11/25/2022 6:42 PM DATA VIRTUALIZATION CONSULTANT): Encouraged patient to follow low fat/low chol diet like the Mediterranean diet. Increase good fats in the diet. Increase exercise. Monitor labs as needed. Assessment & Plan (12/01/2021 12:05 PM DATA VIRTUALIZATION CONSULTANT): Encouraged patient to follow fat/low chol diet like the Mediterranean diet. Increase good fats in the diet. Increase exercise. Monitor labs as needed. Morbid obesity 11/13/2021 Assessment & Plan (12/12/2024 11:47 PM DATA VIRTUALIZATION CONSULTANT): Discussed the patient's BMI. The BMI is [...] 35.00-39.99. Assessment & Plan (11/25/2023 9:19 PM DATA VIRTUALIZATION CONSULTANT): Discussed the patient's BMI. The BMI is above average. BMI management plan is completed. BMI Follow-up includes: nutrition counseling, exercise counseling and education provided. Assessment & Plan (11/25/2022 6:40 PM DATA VIRTUALIZATION CONSULTANT): Discussed the patient's BMI. The BMI is above average. BMI management plan is completed. BMI Follow-up includes: nutrition counseling, exercise counseling and education provided. Assessment & Plan (11/13/2021 8:11 AM DATA VIRTUALIZATION CONSULTANT): Obesity is unchanged. Discussed the patient's BMI. The BMI is above average. BMI management plan is completed. BMI Follow-up includes: nutrition counseling, exercise counseling and education provided. BMI 36.0-36.9,adult 11/13/2021 Assessment & Plan (11/30/2024 3:25 PM DATA VIRTUALIZATION CONSULTANT): Discussed the patient's BMI. The BMI is above average. BMI management plan is completed. BMI Follow-up includes: nutrition counseling, exercise counseling and education provided. Assessment & Plan (11/13/2021 8:11 AM DATA VIRTUALIZATION CONSULTANT): Obesity is unchanged. Discussed the patient's BMI. The BMI is above average. BMI management plan is completed. BMI Follow-up includes: nutrition counseling, exercise counseling and education provided. Annual physical exam 11/13/2021 Assessment & Plan (12/12/2024 11:48 PM DATA VIRTUALIZATION CONSULTANT): Encouraged healthy lifestyle, good nutrition and exercise. Encouraged Calcium and Vitamin D and weight bearing exercise for bone health. Reviewed immunizations Reviewed age appropirate screenings. Assessment & Plan (11/25/2023 9:20 PM DATA VIRTUALIZATION CONSULTANT): Encouraged healthy lifestyle, good nutrition and exercise. Encouraged Calcium and Vitamin D and weight bearing exercise for bone health. Reviewed immunizations Reviewed age appropirate screenings. Assessment & Plan (11/25/2022 6:41 PM DATA VIRTUALIZATION CONSULTANT): Encouraged healthy lifestyle, good nutrition and exercise. Encouraged Calcium and Vitamin D and weight bearing exercise for bone health. Reviewed immunizations Reviewed age appropirate screenings. Assessment & Plan (12/01/2021 12:05 PM DATA VIRTUALIZATION CONSULTANT): Encouraged healthy lifestyle, good nutrition and exercise. Encouraged Calcium and Vitamin D and weight bearing exercise for bone health. Reviewed immunizations Reviewed age appropirate screenings. Plantar fasciitis of right foot 11/13/2021 Essential hypertension 02/14/2021 Assessment & Plan (12/12/2024 11:47 PM DATA VIRTUALIZATION CONSULTANT): Bp is stable/in acceptable range for any co-morbidities. Encouraged to limit sodium intake and exercise for weight control. Continue lisinopril 10 Assessment & Plan (04/17/2024 8:27 AM CDT): Bp is stable/in acceptable range for any co-morbidities. Encouraged to limit sodium intake and exercise for weight control. Assessment & Plan (11/25/2023 9:20 PM DATA VIRTUALIZATION CONSULTANT): Bp is stable/in acceptable range for any co-morbidities. Encouraged to limit sodium intake and exercise for weight control. Continue lisinopril 10 Assessment & Plan (11/25/2022 6:41 PM DATA VIRTUALIZATION CONSULTANT): Bp is stable/in acceptable range for any co-morbidities. Encouraged to limit sodium intake and exercise for weight control Continue lisinopril 10 Assessment & Plan (12/01/2021 12:05 PM DATA VIRTUALIZATION CONSULTANT): Bp is stable/in acceptable range for any [...] 10/31/2020 Assessment & Plan (10/31/2020 9:24 AM DATA VIRTUALIZATION CONSULTANT): This is a significant, separately identifiable problem that was evaluated and managed on the same day as the wellness exam Start Metrogel for her Rosacea. Reviewed risks, benefit, alternatives, side effects and proper use. Acquired hypothyroidism 10/31/2020 Assessment & Plan (12/12/2024 11:48 PM DATA VIRTUALIZATION CONSULTANT): Continue levothyroxine 175 mcg. Monitor labs. Assessment & Plan (11/25/2023 9:20 PM DATA VIRTUALIZATION CONSULTANT): Continue levothyroxine. Monitor labs. Assessment & Plan (11/25/2022 6:40 PM DATA VIRTUALIZATION CONSULTANT): Continue levothyroxine. Monitor labs. Assessment & Plan (12/01/2021 12:05 PM DATA VIRTUALIZATION CONSULTANT): Continue levothyroxine. Monitor labs. Assessment & Plan (10/31/2020 9:25 AM DATA VIRTUALIZATION CONSULTANT): Check labs--- De Quervain's disease (radial styloid tenosynovi tis) 10/31/2020 Assessment & Plan (10/31/2020 9:22 AM DATA VIRTUALIZATION CONSULTANT): This is a significant, separately identifiable problem that was evaluated and managed on the same day as the wellness exam Will refer to Ortho hand for further evaluation. Breast cancer screening by mammogram 10/31/2020 Assessment & Plan (10/31/2020 9:25 AM DATA VIRTUALIZATION CONSULTANT): Mammogram order provided Singletary's cyst of knee, right 08/31/2019 Assessment & Plan (08/31/2019 4:04 PM DATA VIRTUALIZATION CONSULTANT): Encouraged NSAIDs, ice, elevation and compression. Reviewed [...] provided. Assessment & Plan (11/25/2023 9:19 PM DATA VIRTUALIZATION CONSULTANT): Discussed the patient's BMI. The BMI is above average. BMI management plan is completed. BMI Follow-up includes: nutrition counseling, exercise counseling and education provided. Patient has an obesity-related condition (not limited to: hypertension, obstructive sleep apnea, osteoarthritis, hyperlipidemia, diabetes, etc.). Therefore, morbid obesity may be documented for patients with a BMI between 35.00-39.99. Assessment & Plan (11/19/2022 3:34 PM DATA VIRTUALIZATION CONSULTANT): Discussed the patient's BMI. The BMI is [...] and education provided. BMI 35.0-35.9,adult 02/14/2021 11/13/19 22 Assessment & Plan (02/14/2021 2:25 PM CDT): Obesity is unchanged. Discussed the patient's BMI. The BMI is above average. BMI management plan is completed. BMI Follow-up includes: nutrition counseling, exercise counseling and education provided. BMI 34.0-34.9,adult 10/31/2020 02/15/20 21 Assessment & Plan (10/31/2020 8:12 AM DATA VIRTUALIZATION CONSULTANT): Obesity is unchanged. Discussed the patient's BMI. The BMI is above average. BMI management plan is completed. BMI Follow-up includes: nutrition counseling, exercise counseling and education provided. Annual physical exam 10/31/2020// 021 Assessment & Plan (10/31/2020 9:25 AM DATA VIRTUALIZATION CONSULTANT): Encouraged healthy lifestyle, good nutrition and exercise. Encouraged Calcium and Vitamin D and weight bearing exercise for bone health. Reviewed immunizations Reviewed age appropirate screenings. Diabetes mellitus screening 10/31/2020 11/13/2021 Assessment & Plan (10/31/2020 9:26 AM DATA VIRTUALIZATION CONSULTANT): Check labs Lipid screening 10/31/2020 11/13/2021 Assessment & Plan (10/31/2020 9:26 AM DATA VIRTUALIZATION CONSULTANT): Check labs Other fatigue 10/31/2020 11/13/2021 Assessment & Plan (10/31/2020 9:26 AM DATA VIRTUALIZATION CONSULTANT): Probably multifactorial. Check labs and followup to re-evaluate Acute cough 10/09/2020 12/12/2024 Assessment & Plan (03/10/2022 8:43 PM CDT): Continue/complete Cefdinir and Medrol dose pac Try promethazine since she is unable to tolerate codeine Check CXR. Push fluids. Rest. Supportive care. If sxs worsen or don\'t improve, pt is to followup in the office. Assessment & Plan (10/09/2020 7:35 PM DATA VIRTUALIZATION CONSULTANT): Will try a Medrol dose pack to see if sxs resolve. If persist, may need cxr/additional workup. BMI 34.0-34.9,adult 08/31/2019 10/31/19 Assessment & Plan (08/31/2019 3:41 PM DATA VIRTUALIZATION CONSULTANT): Obesity is unchanged. Discussed the patient's BMI. The BMI is above average. BMI management plan is completed. BMI Follow-up includes: nutrition counseling, exercise counseling and education provided. Obesity (BMI 30-39.9) 08/31/20192020 Assessment & Plan (10/31/2020 9:22 AM DATA VIRTUALIZATION CONSULTANT): Obesity is unchanged. Discussed the patient's BMI. The BMI is above average. BMI management plan is completed. BMI Follow-up includes: nutrition counseling, exercise counseling and education provided. Assessment & Plan (08/31/2019 3:41 PM DATA VIRTUALIZATION CONSULTANT): Obesity is unchanged. Discussed the patient's BMI. The BMI is above average. BMI management plan is completed. BMI Follow-up includes: nutrition counseling, exercise counseling and education provided. Other obesity due to excess calories 08/30/2017 11/25/2022 Body mass index (BMI) of 34.0-34.9 in adult 08/30/2017 11/19/2022 Encounters Date Type Department Care Team Description 12/25/2024 Results Follow-Up [address] [place] [phone] Yohana Hrutado PA Acquired hypothyroidism (Primary Dx) 12/01/2024 2:45 PM DATA VIRTUALIZATION CONSULTANT Clinical Support [address] [address] Dysuria (Primary Dx) 11/30/2024 3:30 PM DATA VIRTUALIZATION CONSULTANT Office Visit [address] [address] Yohana Hurtado PA Annual physical exam (Primary Dx); Lumbar back pain; Acquired hypothyroidism; Mixed hyperlipidemia; Diabetes mellitus screening; Fatigue, unspecified type; BMI 36.0-36.9,adult; Morbid obesity (HCC); Low vitamin D level; Essential hypertension; Ingrown toenail; Situational stress from Last 3 Months Immunizations Immunization Administration Dates Next Due Influenza, Quadrivalent, Shirley l Culture-based MDCK, Preservative Free, Antibiotic Free, Intramuscular 08/21/2023,08/22/2022 Influenza, Quadrivalent, Spl it, Preservative Free, Intramuscular 09/06/2021,08/11/2020,08/10/2019,08/27,08/26/2018 Influenza, Split 09/02/2013 Influenza, Trivalent, IM (MDV) 08/19/2017 Influenza, Trivalent, Preser vative Free, Intramuscular 08/27/2024,08/15/2016 Influenza, Unspecified 08/21/2023,08/22/2022, Moderna SARS-CoV-2 Monovalen t Vaccination (12+ YRS) 12/17/2020 Tdap 03/20/2018 ZOSTER Recombinant 01/30/2021,11/01/2020 Surgical History Surgery Date Site/Laterality Comments NO PAST SURGERIES Medical History Medical History Date Comments Disorder of thyroid Thyroid dise ase Family History Medical History Relation Name Comments Arthritis Father Dad Heart disease Father Dad Hypertension Father Dad Prostate cancer Father Dad Arthritis Mother Mom Deep vein thrombosis Mother Mom Diabetes Mother Mom Arthritis Other 1 Family history of Arthritis; Cancer Other 2 Family history of Cancer; Diabetes Other 3 Family history of Diabetes mellitus; Hypertension Other 4 Family history of Hypertension; Cancer Paternal Grandmother Miranda Ovarian cancer Paternal Grandmother Miranda Breast cancer Neg Hx Relation Name Status Comments Father Dad Alive Mother Mom Alive Other 1 Other 2 Other 3 Other 4 Paternal Grandmother Miranda Social History Tobacco Use Types Packs/Day Years [...] on file Legal Sex Female 2:29 AM DATA VIRTUALIZATION CONSULTANT Gender Identity Female 01/24/2021 12:58 PM CDT Sexual Orientation Straight 01/24/2021 12 :58 PM CDT Occupation Industry Job Start Date Job End Date Teacher Not on file Not on file Not on file Obstetrics History Para Term AB IAB SAB Ectopic Multiple Livin g Live Births 2 2 2 Date Outcome GA Total Labor Labor/2nd/3rd Weight Sex Type Anes PTL Dyana A1 A5 Name Clin Para Para Comments Last Filed Vital Signs Vital Sign Reading Time Taken Comments Blood Pressure 126/74 11/30/2024 3:22 PM DATA VIRTUALIZATION CONSULTANT Pulse 79 11/30/2024 3:22 PM DATA VIRTUALIZATION CONSULTANT Temperature 36.9 C (98.4 F) 11/30/2024 3:22 PM DATA VIRTUALIZATION CONSULTANT Respiratory Rate 22 07/06/2024 2:26 PM CDT Oxygen Saturation 97% 11/30/2024 3:22 PM DATA VIRTUALIZATION CONSULTANT Inhaled Oxygen Concentration - - Weight 105.2 kg (231 lb 14.4 oz) 11/30/2024 3:22 PM DATA VIRTUALIZATION CONSULTANT Height 168.9 cm (5' 6.5 ) 11/30/2024 3:22 PM DATA VIRTUALIZATION CONSULTANT Body Mass Index 36.87 11/30/2024 3:22 PM DATA VIRTUALIZATION CONSULTANT Plan of Treatment Health Maintenance Due Date Last Done Comments Hepatitis C Screening 1970 Hepatitis B Screening 02/02/1988 Covid-19 Vaccine (2 - season) 2024 12/17/2020 Cervical Cancer Screening 11/11/2024 11/11/2023, Breast Cancer Screening-Mammogram 01/23/2025 01/24/2024, 01/18/2023, 01/09/2022, Additional history exists Depression Screening 11/30/2025 11/30/2024, 05/06/2024, 04/17/2024, Additional history exists Regular Well Visit/Exam 18-64 11/30/2025 11/30/2024, 11/25/2023, 11/19/2022, Additional history exists DTaP/Tdap/Td Vaccine (2 - Td or Tdap) 03/20/2028 03/20/2018 Colon Cancer Screening-Colonoscopy 05/11/2031 05/11/2021 Zoster Vaccine Completed 01/30/2021, 11/01/2020 Colon Cancer Screening-CT Colonography Discontinued 05/11/2021 Colon Cancer Screening-DNA Stool Discontinued 05/11/2021 Colon Cancer Screening-FIT Discontinued 05/11/2021 Colon Cancer Screening-Sigmoidoscopy Discontinued 05/11/2021 Influenza Vaccine Completed 08/27/2024, , 08/21/2023, Additional history exists Pneumococcal vaccine <65 Aged Out No longer eligible based on patient's age to complete this topic Procedures Procedure Name Priority Date/Time Associated Diagnosis Comments TSH Routine 12/19/2024 9:31 AM DATA VIRTUALIZATION CONSULTANT Acquired hypothyroidism HEMOGLOBIN A1C Routine 12/19/2024 9:31 AM DATA VIRTUALIZATION CONSULTANT Diabetes mellitus screening LIPID PANEL Routine 12/19/2024 9:31 AM DATA VIRTUALIZATION CONSULTANT Mixed hyperlipidemia COMPREHENSIVE METABOLIC PANEL Routine 12/19/2024 9:31 AM DATA VIRTUALIZATION CONSULTANT Mixed hyperlipidemia CBC WITH AUTO DIFFERENTIAL Routine 12/19/2024 9:31 AM DATA VIRTUALIZATION CONSULTANT Fatigue, unspecified type POCT URINALYSIS DIPSTICK Routine 12/01/2024 2:42 PM DATA VIRTUALIZATION CONSULTANT Dysuria URINE CULTURE Routine 12/01/2024 2:33 PM DATA VIRTUALIZATION CONSULTANT Dysuria HM MAMMOGRAPHY Routine 01/24/2024 11:45 AM CDT HIGH RISK HPV DNA DETECTION WITH GENOTYPING Routine 11/11/2023 11:52 AM DATA VIRTUALIZATION CONSULTANT Abnormal uterine bleeding (AUB) COLONOSCOPY Routine 05/11/2021 from Last 3 Months or Most Recently Relevant to Health Maintenance Results * (ABNORMAL) CBC with auto differential (12/19/2024 9:31 AM DATA VIRTUALIZATION CONSULTANT) WBC 3.3(L) 3.8 - 10.8 Thousand/u L [...] 0.9 % [facility] Blood 12/19/2024 9:3 1 AM DATA VIRTUALIZATION CONSULTANT 12/19/2024 9:32 AM DATA VIRTUALIZATION CONSULTANT Narrative [facility] - 12/20/2024 9:42 AM DATA VIRTUALIZATION CONSULTANT FASTING:YES FASTING: YES Yohana HOLBROOK LAB BLOOD ORDERABLES Final Result Performing Organization Address [facility] de Phone Number [facility] [address] [place] [address] * (ABNORMAL) TSH (12/19/2024 9:31 AM DATA VIRTUALIZATION CONSULTANT) [facility] TSH 0.12(L) mIU/L [facility] Comment: Reference Range > or = 20 Years 0.40-4.50 Ranges First trimester 0.26-2.66 Second trimester 0.55-2.73 Third trimester 0.43-2.91 Blood 12/19/2024 9:31 AM DATA VIRTUALIZATION CONSULTANT 12/19/2024 9:32 AM DATA VIRTUALIZATION CONSULTANT Narrative [facility] - 12/20/2024 9:42 AM DATA VIRTUALIZATION CONSULTANT FASTING:YES FASTING: YES Yohana HOLBROOK LAB BLOOD ORDERABLES Final Result Performing Organization Address [facility] de Phone Number [facility] [address] [place] [address] * Hemoglobin A1c (12/19/2024 9:31 AM DATA VIRTUALIZATION CONSULTANT) Pathologist [facility] Hgb A1C 5.3 <5.7 % of total Hgb [facility] Comment: For the purpose of screening for the presence of diabetes: <5.7% Consistent with the absence of diabetes 5.7-6.4% Consistent with increased risk for diabetes (prediabetes) > or =6.5% Consistent with diabetes This assay result is consistent with a decreased risk of diabetes. Currently, no consensus exists regarding use of hemoglobin A1c for diagnosis of diabetes in children. According to [place] Diabetes Association (ADA) guidelines, hemoglobin A1c <7.0% represents optimal control in non- diabetic patients. Different metrics may apply to specific patient populations. Standards of Medical Care in Diabetes(ADA). Blood 12/19/2024 9:31 AM DATA VIRTUALIZATION CONSULTANT 12/19/2024 9:32 AM DATA VIRTUALIZATION CONSULTANT Narrative [facility] - 12/20/2024 9:42 AM DATA VIRTUALIZATION CONSULTANT FASTING:YES FASTING: YES us Yohana HOLBROOK LAB BLOOD ORDERABLES Final Result [facility] [address] [place] [address] * (ABNORMAL) Lipid panel (12/19/2024 9:31 AM DATA VIRTUALIZATION CONSULTANT) [facility] Cholesterol 190 <200 mg/dL [facility] [...] factors. LDL-C is now calculated using the Elvis-Agrawal calculation, which is a validated novel method providing better accuracy than the Friedewald equation in the estimation of LDL-C. Elvis OROZCO et al. YOSHI. 2013;310(19): 7974-9497 (http://education.[employer]/faq/NBX493) Chol/HDL ratio 4.4 <5.0 (calc) [facility] Non-HDL, (LDL+VLDL) 147(H) <130 mg/dL (calc) [facility] Comment: For patients with diabetes plus 1 major ASCVD risk factor, treating to a non-HDL-C goal of <100 mg/dL (LDL-C of <70 mg/dL) is considered a therapeutic option. Blood 12/19/2024 9:31 AM DATA VIRTUALIZATION CONSULTANT 12/19/2024 9:32 AM DATA VIRTUALIZATION CONSULTANT Narrative [facility] - 12/20/2024 9:42 AM DATA VIRTUALIZATION CONSULTANT FASTING:YES FASTING: YES Yohana HOLBROOK LAB BLOOD ORDERABLES Final Result [facility] [address] [place] [address] * (ABNORMAL) Comprehensive metabolic panel (12/19/2024 9:31 AM DATA VIRTUALIZATION CONSULTANT) Pathologist [facility] Glucose 97 65 - 99 mg/dL [facility] [...] [facility] Blood 12/19/2024 9:31 AM DATA VIRTUALIZATION CONSULTANT 12/19/2024 9:32 AM DATA VIRTUALIZATION CONSULTANT Narrative [facility] - 12/20/2024 9:42 AM DATA VIRTUALIZATION CONSULTANT FASTING:YES FASTING: YES Yohana HOLBROOK LAB BLOOD ORDERABLES Final Result [facility] [address] [facility] [place], [place] [address] * (ABNORMAL) POCT urinalysis dipstick (12/01/2024 2:42 PM DATA VIRTUALIZATION CONSULTANT) Pathologist [facility] Glucose, ur, POC Negative Negative MG/DL Bilirubin, ur, POC Negative Negative, Small, Moderate, Large Ketones, ur, POC Negative Negative Specific Briggs, POC 1.030 1.003 - 1.030 Blood, ur, POC Trace(A) Negative pH, ur, POC 6.0 5.0 - 8.0 Protein, ur, POC Negative Negative Urobilinogen, urine, POC 1.0 0.2 - 1.0 mg/dL Nitrite, ur, POC Negative Negative Leukocytes, ur, POC Negative Negative Lot Number [id number] Urine 12/01/2024 2:42 PM DATA VIRTUALIZATION CONSULTANT Yohana HOLBROOK POINT OF CARE TEST ORDERAB LES Final Result * Urine culture Urine, clean voided (12/01/2024 2:33 PM DATA VIRTUALIZATION CONSULTANT) Pathologist [facility] Urine culture [facility] Comment: CULTURE, URINE, ROUTINE Micro Number: [id number] Test Status: Final Specimen Source: Urine Specimen Quality: Adequate Result: No Growth Urine, clean voided 12/01/2024 2:33 PM DATA VIRTUALIZATION CONSULTANT 12/02/2024 1:58 AM DATA VIRTUALIZATION CONSULTANT Yohana HOLBROOK LAB MICROBIOLOGY - GENERAL ORDERABLES Final Result [facility] [address] [place] [address] * HM MAMMOGRAPHY (01/24/2024 11:45 AM CDT) Jude Provider HEALTH MAINTENANCE Final Result * High Risk HPV DNA Detection with Genotyping (Molecular component) (11/11/2023 11:52 AM DATA VIRTUALIZATION CONSULTANT) HPV HR 16 Not Detected Not Detected CHANA COSTA Comment:Testing performed by : [facility], [address] [place]., [address] HPV HR 18 Not Detected Not Detected CHANA COSTA Comment:Testing performed by : [facility], [address] [place]., [address] HPV HR Non 16/18 Not Detected Not Detected CHANA COSTA Comment: Interpretive Data Nucleic acid amplification for [...] this test have been verified by the [facility] Molecular Infectious Disease laboratory. Correlate with separately reported cytology results, as applicable. Interpretive data last revised 23 Testing performed by: [facility], [address] [place]., [address] Endocervical 11/11/2023 11:5 2 AM DATA VIRTUALIZATION CONSULTANT 11/11/2023 6:39 PM DATA VIRTUALIZATION CONSULTANT Narrative CHANA COSTA - 11/12/2023 7:24 AM DATA VIRTUALIZATION CONSULTANT Clinical history and diagnosis->AUB Testing type->Screening Last menstrual period (date if known)->08/28/23 Carlos Arrieta MD LAB BODY FLUIDS AND STO OLS ORDERABLES Final Result CHANA [address] [facility] Department [place] [address] * HM COLONOSCOPY (05/11/2021) Historical Provider HEALTH MAINTENANCE Edited Result - Final from Last 3 Months or Most Recently Relevant to Health Maintenance Insurance [facility] CHO[employer] [facility] HMO/PPO Address: [address] [address] [place] [address] [facility] HMO/PPO Address: [address] [address] [place] [address] [facility] [employer] [facility] HMO/PPO [place] [address] Care Teams Optometrist Relationship Specialty Start Date End Date Yohana Hurtado PA [address] [facility] [address] [place] [address] PCP - General Internal Medicine 08/10/19
== END 2025-01-25 08:31 | disposition home or self-care (01) ==
LOC: ANHIMG 08:33
PROVIDERS: PCP Physician Assistant; Visit Provider Obstetrics & Gynecology
DX: Z12.31 Encounter for screening mammogram for malignant neoplasm of breast (principal)
CPT/HCPCS: 77063; 77067